=== PATIENT | female | born 1990 | race Caucasian/White ===

== ENCOUNTER → 2018-04-24 11:23 | Outpatient (CLI) | payer BC, SELFPAY ==
[2018-04-30 12:23] LABS: AFP, Serum 44.5 ng/mL; Brief History NOT GIVEN; Calc Gestational Age 19.4; Est Date Determined by US; Maternal Weight 185 lbs; Mother Ethnic Origin CAUCASIAN; Number of Fetuses 1; Prev Pregnancies Down Syndrome NOT GIVEN
== END ==
PROVIDERS: PCP Physician Assistant; Visit Provider Obstetrics & Gynecology
DX: O09.02 Supervision of pregnancy with history of infertility, second trimester (principal)
CPT/HCPCS: 36415; 82105

== ENCOUNTER → 2018-04-30 14:08 | Outpatient (CLI) | payer BC, SELFPAY ==
--- NOTE | 2018-04-30 | DI.US.S_ITS ---
PROCEDURE: US OB >= 14 WEEKS FETUS INDICATIONS: 20 WEEK ANATOMICAL SURVEY OUTSIDE/PRIOR DATING DATA: Last menstrual period (LMP): 12/09/17. LMP-based estimated date of delivery (FRANCESCO): 09/15/18. First dating scan (date and location): 02/13/18. Estimated date of delivery (FRANCESCO) from first dating scan: 09/14/18. TECHNIQUE: Real-time scanning was performed of the fetus, with image documentation and biometric measurements. Endovaginal scanning: No COMPARISON: [facility], , OB COMPLETE LESS THAN 14 WKS, 02/13/2018, 10:40. FINDINGS: General: A single living intrauterine gestation is present. Presentation: Transverse. Placenta: Placental position is posterior, without previa. Amniotic fluid index: 17.1 cm, normal range is 5-24 cm. heart rate: 163 beats per minute. Maternal cervical canal: 4.0 cm long. Normal lower limit is 2.5 cm. biometrics: Biparietal diameter: 20 weeks 1 day Head circumference: 20 weeks 1 day Abdominal circumference: 20 weeks 4 days Femur length: 20 weeks Estimated gestational age from initial scan: 20 weeks 3 days Composite gestational age from present scan: 20 weeks 2 days Estimated weight and percentile: 342 g, 36 percentile Measurement variability for biometric dating: +/- 7 days from 14 weeks to 15 weeks 6 days gestation, +/- 10 days from 16 weeks to 21 weeks 6 days gestation, +/- 2 weeks from 22 weeks to 27 weeks 6 days gestation, +/- 3 weeks for 28 weeks gestation or later. weight reference: 4500 g or EFW >90/95% is considered macrosomia or large for gestational age. EFW <10% is small for gestational age. EFW 5% or less is considered intra-uterine growth restriction. Anatomic survey: Neuro: Ventricles are non-dilated at less than 10 mm. Cisterna magna is normal at 3-11 mm. Cerebellum is normal in size and morphology. Nuchal skin fold: Normal at less than 6 mm between 14-21 weeks gestational age. Face: Nose and lips, facial profile are normal. Spine: No evidence for spina bifida. Heart: 4-chambered heart is present, with normal ventricular outflow tracts. Diaphragm: Diaphragm is intact. Stomach: Left-sided stomach is present. Kidneys: No hydronephrosis. Normal is less than 5 mm in 2nd trimester, less than 7 mm in 3rd trimester. Cord: 3-vessel cord has orthotopic insertion. Bladder: Normal in size. Extremities: All 4 extremities identified. IMPRESSION: 1. Normal interval growth. 2. Normal anatomic survey. Dictated by: Shaheen MASCORRO Interpreted: Romeo Allen MD on 04/30/2018 at 16:34 Approved by: Tevin Lmi M.D. on 05/01/2018 at 8:56
== END ==
PROVIDERS: PCP Physician Assistant; Visit Provider Obstetrics & Gynecology
DX: Z36.89 Encounter for other specified antenatal screening (principal)
CPT/HCPCS: 76811

== ENCOUNTER → 2018-06-12 08:34 | Outpatient (CLI) | payer BC, SELFPAY ==
[2018-06-12 10:40] LABS: Hematocrit 38.4 % (36-46)
[2018-06-12 11:02] LABS: GTT (PREG) 1 Hour PP 50gm Dose 97 mg/dL (76-139)
== END ==
PROVIDERS: Visit Provider Obstetrics & Gynecology
DX: Z34.02 Encounter for supervision of normal first pregnancy, second trimester (principal)
CPT/HCPCS: 36415; 82950; 85014; 85018

== ENCOUNTER → 2018-08-15 08:48 | Outpatient (CLI) | payer BC, SELFPAY | END | disposition home or self-care (01) | LOC: LABOR 10:01 → OB 08-16 15:33 | PROVIDERS: Visit Provider Obstetrics & Gynecology | DX: Z34.03 Encounter for supervision of normal first pregnancy, third trimester (principal); Z3A.35 35 weeks gestation of pregnancy | CPT/HCPCS: 59025; G0378; G0379 ==

== ENCOUNTER → 2018-08-21 09:09 | Outpatient (CLI) | payer BC, SELFPAY | PROVIDERS: PCP Physician Assistant; Visit Provider Obstetrics & Gynecology | DX: Z34.03 Encounter for supervision of normal first pregnancy, third trimester (principal) | CPT/HCPCS: 87081; 87147; 87653 ==

== ENCOUNTER 2018-09-15 11:02 | Observation (INO) | payer BC, SELFPAY | END 2018-09-15 13:05 | disposition home or self-care (01) | LOC: LABOR 11:03 | PROVIDERS: Admitting Provider Obstetrics & Gynecology; Visit Provider Obstetrics & Gynecology | DX: Z34.03 Encounter for supervision of normal first pregnancy, third trimester (principal); Z3A.40 40 weeks gestation of pregnancy | CPT/HCPCS: 59025; 59050; G0378; G0379 ==

== ENCOUNTER 2018-09-17 03:56 | Outpatient (CLI) | payer SELFPAY | END 2018-09-17 04:25 | disposition home or self-care (01) | LOC: LABOR 09-18 07:46 → OB 09-18 07:46 | PROVIDERS: PCP Obstetrics & Gynecology | DX: Z34.83 Encounter for supervision of other normal pregnancy, third trimester (principal); Z3A.40 40 weeks gestation of pregnancy | CPT/HCPCS: 59025; G0378; G0379 ==

== ENCOUNTER 2018-09-18 09:32 | Inpatient (IN) | payer BC, SELFPAY ==
--- NOTE | 2018-09-18 10:16 | PM.OBHP.1 ---
OB HPI Date/Time Date of admission: 09/18/18 Date Patient Seen: 09/18/18 Time Patient Seen: 10:16 History of Present Condition Chief complaint: OBS : 1 Para: 0 Estimated Date of Delivery: 09/15/18 Estimated Gestational Age (weeks): 40 Narrative: Ching Flores is a 28 year old female admitted for induction of labor for term with IVF Indications Indication for induction OB: post dates History of Present care: good care, initiated at week # (9), number of visits (11) and pounds weight gain (85) Dating criteria: LMP confirmed by 1st trimester US Ultrasounds: normal mid trimester US Obstetrical complications: none Medical complications: none Preadmission Labs Blood type: A (+) positive -: Antibody screen: negative, GBS status: positive, HBsAG: negative, HIV: negative, HSV 1: positive, HSV 2: negative and RPR/VDLR: negative -: Chlamydia screen: not detected and Gonorrhea screen: not detected -: Rubella: immune and Varicella: immune HCAB: negative Cell-free DNA: Normal female 1 hr GTT: 97 Evaluation Evaluation Baseline heart rate: 160 Variability: Moderate (11-25) monitor accelerations: Present monitor decelerations: Absent Contraction Frequency (minutes): 0 Cervical dilation (cm): 1 Cervical effacement (%): 85 station: -1 [facility] Medical History Depression (Chronic) History of PCOS (Chronic) Chicken pox (Resolved 1991) Surgical History Status post laparoscopic cholecystectomy (Resolved 05/2008) Family History Brother Age: 44 History of thyroid cancer, Onset Age: 33 Meds Home Medications Medication Instructions Recorded Confirmed Type breast pump #1 each 05/21/18 05/27/18 Rx Allergies Allergy/AdvReac Type Severity Reaction Status Date / Time No Known Drug Allergies Allergy Unverified 05/27/18 15:32 Review of Systems Review of Systems Patient denies any signs or symptoms of preeclampsia. No leaking of fluid. Good movement. All systems reviewed & are unremarkable except as noted in HPI and below Exam Narrative Exam Narrative: HEENT exam within normal limits. Lungs are clear to auscultation and percussion. Heart is regular rate and rhythm, no S3-S4 or murmurs. Abdomen is gravid. Fetus is vertex. Extremities without edema and nontender. Assessment and Plan (1) 40 weeks gestation of : Current visit: Yes Status: Acute Plan: Plan: Patient comes in for Pitocin induction for term IVF . Patient states she is on 25 mg of Zoloft daily for depression which will continue.
[2018-09-18] MEDS: PENICILLIN G POTASSIUM 5,000,000 UNIT in DEXTROSE 5% IN WATER 250 ML IV (10:30)
[2018-09-18] MEDS: LACTATED RINGERS 1,000 ML 100 ML IV ×3 (10:30→20:22)
[2018-09-18] MEDS: OXYTOCIN PREMIX 30 UNIT/500 ML PLAST..BAG IV (10:38)
[2018-09-18 11:28] LABS: Add Manual Diff / Slide Review NO; Basophils Percent Auto 0.7 % (0-2); Eosinophils Percent Auto 0.8 % (2-4); Lymphocytes Percent Auto 18.9 % (25-40); Mean Corpuscular HGB Conc 34.1 % (30-36); Mean Corpuscular Hemoglobin 30.8 PG (26-34); Mean Corpuscular Volume 90.4 fL (80-100); Monocytes Percent Auto 5.8 % (3-14); Neutrophils Absolute Auto 11800 /uL (3000-5900); Neutrophils Percent Auto 73.8 % (50-75); Platelet Count 373 X10^3/uL (150-400); Red Blood Cell Count 4.53 X10^6/uL (4.0-5.2)
[2018-09-18 11:41] VITALS: BP 131/74
[2018-09-18] MEDS: PENICILLIN G POTASSIUM 3,000,000 UNIT/50 ML FROZ.PIGGY 100 UNIT IV ×3 (14:27→23:22)
[2018-09-19] MEDS: PENICILLIN G POTASSIUM 3,000,000 UNIT/50 ML FROZ.PIGGY 100 UNIT IV ×2 (03:04→07:41)
[2018-09-19] MEDS: LACTATED RINGERS 1,000 ML 100 ML IV ×5 (07:19→23:14)
--- NOTE | 2018-09-19 11:23 | PM.OBPNLAB ---
Date/Time Date Patient Seen: 09/19/18 Time Patient Seen: 11:23 Pain Control Pain control: epidural Pelvic Exam Dilation (cm): 4 Effacement (%): 85 station: -1 Amniotic membrane status: Ruptured Contractions Contractions on admission: irregular Monitor mode: Internal Pitocin rate (mU/min): 18 Status status: Category l Heart Rate Baseline: 145 Monitor Accelerations: Present Monitor Decelerations: Absent Monitor Variability: Moderate Assessment and Plan Assessment: other (Failure to progress in labor) Plan: Comments: Consent form was reviewed with the patient and risks discussed.
[2018-09-19] MEDS: CEFAZOLIN 2 GM/100 ML FROZ.PIGGY IV (13:18)
--- NOTE | 2018-09-19 13:44 | SUR.OPER ---
Supine on Padded OR bed, head on pillow, safety belt at thigh, arms secured on padded arm boards at <90 degrees abduction. Bump under right buttock. Legs uncrossed with pillow under knees, gel pad to heels, tape over blanket to lower legs.
--- NOTE | 2018-09-19 13:44 | SUR.OPER ---
Live female at 1334, APGARS 8/9
[2018-09-19] MEDS: CARBOPROST 250 MCG/ML AMPUL IM (13:52)
[2018-09-19 14:17] VITALS: BP 124/75; PULSE 103; RESP 18; TEMP 37.1; O2SAT 95
[2018-09-19 14:22] VITALS: BP 118/78; PULSE 100; RESP 16; O2SAT 97
[2018-09-19 14:27] VITALS: BP 120/68; PULSE 98; RESP 18; O2SAT 95
--- NOTE | 2018-09-19 15:07 | PM.OP.1 ---
Operative Date/Time/Diagnoses Date of procedure: 09/19/18 Time of procedure: 14:31 Pre-op diagnosis: Failure to progress in labor Post-op diagnosis: same Procedure & Clinicians Procedure: Primary low-transverse section Same procedure as scheduled: Yes Indications: Failure to progress in Surgeon: Jayshree Tapia Click Yes if Unassisted: Yes Anesthesia Type: Epidural Operative Notes Findings: Normal tubes ovaries and uterus. The female in the OP position with Apgars of 8 and 9 weighing 8 lb 8 oz Closure Type: primary Specimen(s): none sent Applied: catheter (Winston) Estimated Blood Loss (mL): 450 Blood products transfused: none Procedure in detail: The patient was brought to the operating room where she underwent bolus in her epidural for anesthesia. She was placed in a supine position with a left lateral tilt. A Winston catheter was in place. Pulsatile stockings were placed and functional throughout the case. 2 g of Ancef were given IV prior to the incision. Warming was in place. The patient was prepped and draped in usual sterile fashion. A low transverse incision was made with a scalpel and the incision was carried down to the fascial layer which was incised transversely with scissors. The midline attachments are superiorly and inferiorly. Some bleeding was controlled Bovie. The rectus muscles were in the midline and the peritoneal incision was made with no damage to internal structures. The peritoneum was incised and superiorly and inferiorly. Bladder blade was placed and a bladder flap was developed and the bladder held away from the lower uterine segment. An incision was made in the uterus with the scalpel and the incision was extended with stretching. The head was elevated out of the abdomen and with fundal pressure the baby was delivered. The was bulb suctioned for clear fluid and handed off to the warmer. Cord blood was collected. The placenta delivered spontaneously with traction. The uterus was cleaned with clean laps. The uterine incision was closed in 2 layers of 0 chromic suture the first a running locking layer the second an imbricating layer. The bladder peritoneum was repaired with 2-0 Polysorb suture. The gutters were cleaned of any remaining fluids and ovaries and tubes were observed to be normal. Adequate hemostasis was noted. The perineum was closed with 2-0 Polysorb suture. The fascia layer was closed with 0 Polysorb suture with 2 stitches. The incision was irrigated and adequate hemostasis noted. The incision was closed with interrupted 3-0 Polysorb sutures and then a subcuticular stitch of 4-0 Polysorb suture. Steri-Strips were placed. The uterus was massaged to remove any clots. The patient went to recovery room in good condition. Counts of instruments and sponges were correct. Complications: none Condition: stable Disposition: other ( Center) Plan for aftercare: Routine post section
[2018-09-19] MEDS: SERTRALINE 25 MG TABLET PO (22:06)
[2018-09-19] MEDS: KETOROLAC 30 MG/ML VIAL IV (22:07)
[2018-09-20] MEDS: KETOROLAC 30 MG/ML VIAL IV ×2 (05:15→11:34)
[2018-09-20] MEDS: LANOLIN OINT 7 GM 1 APPLIC TOP (05:52)
--- NOTE | 2018-09-20 07:07 | PM.OBPN.1 ---
Subjective - OB Interval history: Patient is postoperative day 1. Patient comments: incisional pain [place] baby status: doing well [place] feeding status: exclusively breast feeding Narrative: Patient has not tried a get out of bed yet she is sore but otherwise doing well. No nausea. No headaches. Date Patient Seen: 09/20/18 Time Patient Seen: 07:08 Exam Vital Signs (past 8 hours): Blood pressure 124/84, temperature 98.3?, pulse of 96 Oxygen Delivery Method Room Air Narrative Exam Narrative: Abdomen is soft, nontender. Uterus is firm, at U, appropriately tender. Dressing is dry. Mild lochia. Extremities with trace edema and nontender. Objective Labs Result Diagrams: 09/18/18 10:15 Assessment & Plan (1) 40 weeks gestation of : Status: Acute Current Visit: Yes (2) Delivery by section of full-term infant: Status: Acute Assessment and plan: Patient is for postoperative day 1. section for failure to progress in labor. She is doing well. Current Visit: Yes Plan day: 1 plan OB: routine postop care Time Spent With Patient Total time spent is greater than 50% in coordination of care (as documented) at patient's floor/unit and/or counseling patient: less than 15 minutes
[2018-09-20 07:36] LABS: Add Manual Diff / Slide Review NO; Basophils Percent Auto 0.2 % (0-2); Eosinophils Percent Auto 0.3 % (2-4); Hematocrit 28.6 % (36-46); Hemoglobin 9.8 g/dL (12.0-16.0); Lymphocytes Percent Auto 13.9 % (25-40); Mean Corpuscular HGB Conc 34.3 % (30-36); Mean Corpuscular Hemoglobin 31.4 PG (26-34); Mean Corpuscular Volume 91.4 fL (80-100); Monocytes Percent Auto 7.3 % (3-14); Neutrophils Absolute Auto 14400 /uL (3000-5900); Neutrophils Percent Auto 78.3 % (50-75); Platelet Count 273 X10^3/uL (150-400); Red Blood Cell Count 3.13 X10^6/uL (4.0-5.2); Red Cell Distribution Width 12.9 % (11.6-14.8); White Blood Cell Count 18.4 X10^3/uL (4.5-11.0)
[2018-09-20] MEDS: OXYCODONE/ACETAMINOPHEN 5/325 TABLET 2 TAB PO ×4 (09:16→23:54)
[2018-09-20] MEDS: DOCUSATE 250 MG CAPSULE PO (09:16)
[2018-09-20 15:11] VITALS: TEMP 37.4
[2018-09-20] MEDS: IBUPROFEN 600 MG TABLET PO ×2 (17:57→23:55)
[2018-09-20] MEDS: SERTRALINE 25 MG TABLET PO (23:56)
[2018-09-21] MEDS: OXYCODONE/ACETAMINOPHEN 5/325 TABLET 2 TAB PO ×3 (04:02→12:32)
[2018-09-21] MEDS: DOCUSATE 250 MG CAPSULE PO (08:45)
[2018-09-21] MEDS: IBUPROFEN 600 MG TABLET PO (08:46)
--- NOTE | 2018-09-21 10:37 | PM.OBDS.1 ---
Discharge Providers Date of admission: 09/18/18 09:32 Primary care physician: Katherin Pool MD Consults: 09/18/18 09:39 Consult to Anesthesiology Urgent Comment: Consulting Provider: Anesthesiologist Reason for consultation: Epidural Has provider been notified: No 09/19/18 19:08 Consult to Jump Roll Operator Routine Comment: Discharge provider: Jayshree Tapia MD Discharge Date: 09/21/18 Summary Date Patient Seen: 09/21/18 Time Patient Seen: 10:38 Hospital Course: Patient arrived on Labor and delivery for induction for postdates. She was started on Pitocin. She received IV penicillin for positive group B strep culture. She received an epidural catheter for pain control. She did not progress past 5 cm. She underwent a primary low-transverse section for a female posterior position weighing 8 lb 8 oz. Both infant and mother did well . She is breast-feeding without difficulty. She is urinating and ambulatory. She is passing gas. She is tolerating regular diet. No signs or symptoms of preeclampsia. Blood pressure 125/82, pulse of 103, temperature 99.1?. Abdomen is soft, nontender. Uterus is firm, at U, appropriately tender. Incision is clean, dry, intact. Mild lochia. Extremities with trace edema and nontender. Patient's blood type is A positive and she is rubella immune. Routine precautions were reviewed with the patient. Peripartum Data Delivery Method: Section Procedures: IV Pitocin induction, IV penicillin for positive group B strep culture, epidural catheter, primary low-transverse section complications: none [place] 1: Gender: Female Disposition of : home Discharge Diagnosis (1) 40 weeks gestation of : Status: Acute (2) Delivery by section of full-term infant: Status: Acute Status at Discharge Functional status at discharge: independent ambulation Overall status at discharge: patient is progressing back to baseline Time Spent with Patient Total time spent providing and/or coordinating discharge services: Less than 30 minutes Objective Labs Result Diagrams: 09/20/18 06:43 Discharge Plan Discharge Plan Patient Disposition: Home Discharge Med Rec/Prescriptions Prescriptions: New oxycodone-acetaminophen 5-325 mg Tablet 2 tab PO Q4HR PRN (Reason: Pain, Severe (7-10)) Qty: 40 RF: 0 ibuprofen 600 mg Tablet 600 mg PO Q6HR PRN (Reason: As Needed For Fever/Mild Pain) Qty: 30 RF: 0 docusate sodium 250 mg Capsule 250 mg PO DAILY Qty: 20 RF: 0 Continue sertraline [Zoloft] 25 mg Tablet 25 mg PO DAILY RF: 0 No Action breast pump device .ROUTE .MEDSUPPLY Qty: 1 RF: 0 Follow up/Referrals: Katherin Pool MD [Primary Care Provider] - 1 Week (incision check with Regina or Corine) Provider Discharge Instructions Diet: Regular Skin/Wound/Dressing Care Report to your healthcare provider any signs of infection, such as:: chills, fever, night sweats and unusual drainage Dressing: Leave dressing in place until 1 week exam Discharge Data Primary Care Provider: Katherin Pool Attending Provider: Jayshree Tapia Admit Date/Time: 09/18/18 09:32
[2018-09-21 11:31] VITALS: BP 126/80; PULSE 99; RESP 18; TEMP 37.3
== END 2018-09-21 12:55 | disposition home or self-care (01) | DRG 788 ==
PROVIDERS: Admitting Provider Specialist; PCP Obstetrics & Gynecology; Visit Provider Specialist
PROC: 10D00Z1 Extraction of Products of Conception, Low, Open Approach (ICD-10-PCS; CPT 59514; principal; 2018-09-19 13:00)
DX: O48.0 Post-term pregnancy (principal); O99.824 Streptococcus B carrier state complicating childbirth; Z3A.40 40 weeks gestation of pregnancy; Z37.0 Single live birth; O62.1 Secondary uterine inertia; Z34.83 Encounter for supervision of other normal pregnancy, third trimester
CPT/HCPCS: 01967; 01968; 36415; 59025; 59050; 59510; 59514; 85025; 86850; 86900; 86901; G0378; G0379; J0690; J1885; J2274; J2405; J2540; J2590; J2765; J3010

== ENCOUNTER → 2018-12-15 09:14 | Outpatient (CLI) | payer BC, SELFPAY ==
[2018-12-15 09:43] LABS: Cholesterol 185 mg/dL (140-199); Glucose 79 mg/dL (70-100); HDL Cholesterol 51 mg/dL (40-60); LDL Cholesterol Calculated 123 mg/dL (<100); Triglycerides 57 mg/dL (35-150)
== END ==
PROVIDERS: PCP Obstetrics & Gynecology; Visit Provider Physician Assistant
DX: Z13.220 Encounter for screening for lipoid disorders (principal); Z13.6 Encounter for screening for cardiovascular disorders; Z13.1 Encounter for screening for diabetes mellitus
CPT/HCPCS: 36415; 80061; 82947